=== PATIENT | female | born 1965 | race Caucasian/White ===

== ENCOUNTER 2017-08-13 11:24 | Observation (INO) | payer BC ==
[2017-08-13 13:03] LABS: ABS Basophils 0.1 10^3/ul (0-0.2); ABS Eosinophils 0 10^3/ul (0-0.6); ABS Lymphocytes 0.8 10^3/ul (1.0-4.8); ABS Monocytes 0.8 10^3/ul (0-0.8); ABS Neutrophils 9.8 10^3/ul (1.5-7.7); ABS Nucleated RBC 0 10^3/ul; Eosinophil % 0.2 % (0-6); Hematocrit 38 % (35-47); Hemoglobin 12.7 g/dl (12.0-16.0); Lymphocyte % 7.2 % (25-47); Mean Corpuscular HGB Conc 34 g/dl (31-36); Mean Corpuscular Hemoglobin 31 pg (27-31); Mean Corpuscular Volume 91 fL (80-97); Mean Platelet Volume 8.5 um3 (7.4-10.4); Nucleated Red Blood Cells % 0; Platelet Count 186 10^3/ul (150-450); Red Blood Count 4.16 10^6/ul (4.0-5.4); Red Cell Distribution Width 13 % (10.5-15); White Blood Count 11.5 10^3/ul (3.5-10.8)
[2017-08-13 13:22] LABS: EGFR Non-African American 76.7 (>60)
[2017-08-13] MEDS ORDERED: Ondansetron INJ* 2 MG/ML VIAL IV ONE (13:54)
[2017-08-13] MEDS ORDERED: Morphine INJ* 10 MG/ML 1 ML CARPUJECT IV ONE ×2 (13:54→14:25)
[2017-08-13] MEDS ORDERED: NS 0.9% 1000 ML* 1,000 ML IV ONE ×2 (13:54→18:37)
[2017-08-13] MEDS ORDERED: Morphine VIAL* 4 MG/ML VIAL (1 ml vial) IV ONE (14:29)
--- NOTE | 2017-08-13 15:29 | ED ---
Abdominal Pain/Female - HPI Summary HPI Summary: 52 female presents to ER with complaints of right lower quadrant pain that began suddenly this morning around 2 AM. The dull ache however is very sharp at times with certain positions, coughing, walking in the bumps on the car ride over making it worse. Admits to 2 episodes of vomiting and diarrhea. Denies fever. Has some discomfort with urination. No history of kidney stones. No chest pain or shortness of breath. Pain does not radiate. Did have a hysterectomy however still has both ovaries. Did have ovarian cysts in the past with surgical intervention years ago. No blood in vomit or stool. No past medical history. No medications. No other complaints. - History of Current Complaint Chief Complaint: EDAbdPain Stated Complaint: ABD PAIN Time Seen by Provider: 08/13/17 12:53 Hx Obtained From: Patient ?: No Onset/Duration: Sudden Onset, Lasting Hours, Still Present Timing: Constant Severity Initially: Severe Severity Currently: Moderate Pain Intensity: 8 Pain Scale Used: 0-10 Numeric Location: Discrete At: RLQ, Suprapubic Radiates: No Character: Sharp, Dull Aggravating Factor(s): Movement - Coughing/palpation, certain position Alleviating Factor(s): Position Associated Signs and Symptoms: Positive: Urinary Symptoms, Decreased Appetite, Vomiting, Diarrhea. Negative: Diaphoresis, Fever, Constipation, Blood in Stool , Vaginal Bleeding, Vaginal Discharge Allergies/Adverse Reactions: Allergies Allergy/AdvReac Type Severity Reaction Status Date / Time hydrocodone Allergy Itching Verified 08/13/17 11:32 prednisone Allergy Unknown Verified 08/13/17 11:32 Reaction Details PMH/Surg Hx/FS Hx/Imm Hx Endocrine/Hematology History: Denies: Hx Diabetes Cardiovascular History: Denies: Hx Congestive Heart Failure, Hx Hypertension History: Denies: Hx Renal Disease Musculoskeletal History: Reports: Hx Arthritis, Hx Back Problems - Cancer History Hx Chemotherapy: No Hx Radiation Therapy: No - Surgical History Surgery Procedure, Year, and Place: HYSTERECTOMY, TUBAL LIGATION - Immunization History Date of Tetanus Vaccine: Within 8 years Date of Influenza Vaccine: none Immunizations Up to Date: Yes Infectious Disease History: No Infectious Disease History: Denies: Traveled Outside the [place] in Last 30 Days - Family History Known Family History: Positive: None - Social History Alcohol Use: None Alcohol Amount: 1 glass of wine before bed. Substance Use Type: Reports: None Smoking Status (MU): Former Smoker Type: Cigarettes Review of Systems Constitutional: Negative Cardiovascular: Negative Respiratory: Negative Positive: Abdominal Pain, Vomiting, Diarrhea, Nausea Neurological: Negative All Other Systems Reviewed And Are Negative: Yes Physical Exam Triage Information Reviewed: Yes Vital Signs On Initial Exam: Initial Vitals Temp Pulse Resp BP Pulse Ox 98.9 F 93 16 108/72 96 08/13/17 11:28 08/13/17 11:28 08/13/17 11:28 08/13/17 11:28 08/13/17 11:28 Vital Signs Reviewed: Yes Appearance: Positive: Well-Appearing, Well-Nourished, Pain Distress - Moderate holding right lower quadrant, severe with palpation and changing position Skin: Positive: Warm, Skin Color Reflects Adequate Perfusion, Dry. Negative: Cold, Numb, "Wooden", Cyanosis @, Diaphoretic, Jaundiced, Pale, Erythema @ Head/Face: Positive: Normal Head/Face Inspection Eyes: Positive: EOMI ENT: Positive: Hearing grossly normal, Pharynx normal, TMs normal Neck: Positive: Supple, Nontender Respiratory/Lung Sounds: Positive: Clear to Auscultation, Breath Sounds Present. Negative: Rales, Rhonchi, Wheezes Cardiovascular: Positive: Normal, RRR, Pulses are Symmetrical in both Upper and Lower Extremities. Negative: Murmur, Rub Abdomen Description: Positive: No Organomegaly, Soft, CVA Tenderness (R), CVA Tenderness (L), Guarding, McBurney's Point Tenderness, Other: - Positive rebound and psoas, negative Leigh's, exquisite right lower quadrant and suprapubic tenderness to palpation. Negative: Bruit, Distended, Hernia @, Hepatomegaly, Peritoneal Signs, Pulsatile Mass Bowel Sounds: Positive: Present Pelvic Exam: Positive: External Exam Normal - per patient deferred exam Musculoskeletal: Positive: Normal, Strength/ROM Intact Neurological: Positive: Normal, Sensory/Motor Intact, Alert, Oriented to Person Place, Time, NV Bundle Intact Distally Diagnostics - Vital Signs Vital Signs Temp Pulse Resp BP Pulse Ox 08/13/17 11:28 98.9 F 93 16 108/72 96 - Laboratory Lab Results: Lab Results 08/13/17 08/13/17 08/13/17 Range/Units 12:46 12:46 12:46 WBC 11.5 H (3.5-10.8) 10^3/ul RBC 4.16 (4.0-5.4) 10^6/ul Hgb 12.7 (12.0-16.0) g/dl Hct 38 (35-47) % MCV 91 (80-97) fL MCH 31 (27-31) pg MCHC 34 (31-36) g/dl RDW 13 (10.5-15) % Plt Count 186 (150-450) 10^3/ul MPV 8.5 (7.4-10.4) um3 Neut % (Auto) 84.7 H (38-83) % Lymph % (Auto) 7.2 L (25-47) % [place] % (Auto) 7.3 H (0-7) % Eos % (Auto) 0.2 (0-6) % Baso % (Auto) 0.6 (0-2) % Absolute Neuts (auto) 9.8 H (1.5-7.7) 10^3/ul Absolute Lymphs (auto) 0.8 L (1.0-4.8) 10^3/ul Absolute Monos (auto) 0.8 (0-0.8) 10^3/ul Absolute Eos (auto) 0 (0-0.6) 10^3/ul Absolute Basos (auto) 0.1 (0-0.2) 10^3/ul Absolute Nucleated RBC 0 10^3/ul Nucleated RBC % 0 Sodium 135 L (139-145) mmol/L Potassium 4.1 (3.5-5.0) mmol/L Chloride 103 (101-111) mmol/L Carbon Dioxide 24 (22-32) mmol/L Anion Gap 8 (2-11) mmol/L BUN 19 (6-24) mg/dL Creatinine 0.79 (0.51-0.95) mg/dL Est GFR ( Amer) 98.7 (>60) Est GFR (Non-Af Amer) 76.7 (>60) BUN/Creatinine Ratio 24.1 H (8-20) Glucose 115 H (70-100) mg/dL Lactic Acid 1.1 (0.5-2.0) mmol/L Calcium 9.2 (8.6-10.3) mg/dL Total Bilirubin 0.60 (0.2-1.0) mg/dL AST 13 (13-39) U/L ALT 11 (7-52) U/L Alkaline Phosphatase 29 L (34-104) U/L C-Reactive Protein 25.39 H (< 5.00) mg/L Total Protein 7.1 (6.4-8.9) g/dL Albumin 4.3 (3.2-5.2) g/dL Globulin 2.8 (2-4) g/dL Albumin/Globulin Ratio 1.5 (1-3) Lipase 10 L (11.0-82.0) U/L Beta HCG, Quant < 0.60 mIU/mL Result Diagrams: 08/13/17 12:46 08/13/17 12:46 Lab Statement: Any lab studies that have been ordered have been reviewed, and results considered in the medical decision making process. Re-Evaluation - Re-Evaluation First Eval Re-Evaluation Time: 15:40 Change: Unchanged - Did not have relief from morphine requesting more pain medication. updated on plan. Waiting CT. Second Eval Re-Evaluation Time: 17:15 Change: Improved - had relief after diluadid still having pain. waiting CT results. updated about shift change Abdominal Pain Fem Course/Dx - Course Course Of Treatment: Given fluids, Zofran and pain medication while in ED. Labs and urinalysis obtained. Urinalysis did show blood with 1+ bacteria. Labs showed white blood cell count elevation with left shift as well as elevated CRP concerning for appendicitis versus renal calculi versus cystitis/ pyelonephritis. CT obtained pending results. Normal vitals and physical exam otherwise. Patient was signed out to Danish GARCÍA at shift change pending CT results for further treatment. - Diagnoses Differential Diagnosis: Positive: Appendicitis, Diverticulitis, Ovarian Cyst, Urinary Tract Infection, Other - Pyelonephritis, renal calculi Provider Diagnoses: RLQ abdominal pain Discharge - Sign-Out/Discharge Documenting (check all that apply): Sign-Out Patient Signing out patient TO: Danish Palmer - at shift change pending Ct results - Discharge Plan Condition: Stable Referrals: Nancy Desai MD [Primary Care Provider] - - Billing Disposition and Condition Condition: STABLE
[2017-08-13 15:47] LABS: Urine Appearance Clear; Urine Blood 2+ (Negative); Urine Color Yellow; Urine Ketones Negative (Negative); Urine Protein Negative (Negative); Urine Specific Gravity 1.014 (1.010-1.030); Urine Urobilinogen Negative (Negative)
[2017-08-13] MEDS ORDERED: Iohexol 300* (CONTRAST) 10 ML SDV IV ONE (15:57)
[2017-08-13] MEDS ORDERED: HYDROmorphone INJ* 2 MG/ML CARPUJECT SYRINGE IV SLOW PU ONE ×2 (16:05→18:36)
--- NOTE | 2017-08-13 17:51 | RAD ---
CLINICAL HISTORY: Abdominal pain. Relevant surgical history includes a hysterectomy. COMPARISON: None TECHNIQUE: Contrast enhanced CT examination of the abdomen and pelvis from the lung bases through the initial tuberosities. The patient received 91 mL Omnipaque 300 intravenously prior to imaging.The patient received oral contrast as well prior to imaging. FINDINGS: VISUALIZED LUNG BASES: The visualized lung bases are grossly clear. There is no pleural effusion. ABDOMEN AND PELVIS: There is mild dilatation of the intrahepatic biliary ducts. The common bile duct measures 9 mm in diameter. The liver is otherwise homogenous in attenuation. The spleen, pancreas and adrenal glands are grossly normal in appearance. There are multiple stones in the gallbladder lumen. The right kidney is normal in appearance without focal mass, calcification or signs of hydronephrosis. At the upper pole of the right kidney there is a hypoattenuating structure measuring 2 cm in greatest axial dimension with a calcified rim. This is unchanged since the CTA acquired January 02, 2013 and is of doubtful clinical concern. Neural contrast has progressed as far as the rectosigmoid colon. The small and large bowel are not distended. There is normal contrast in the fluid-filled appendix. The appendix is enlarged up to 12 mm in diameter (axial image 57 and coronal image 64. There is a mild degree of periappendiceal infiltration of the mesenteric fat as well as trace fluid along the posterior margin of the peritoneal cavity. There is no gross retroperitoneal or mesenteric lymphadenopathy. The uterus is surgically absent The coarsely calcified abdominal aorta and iliac arteries are normal in course and diameter. Degenerative changes include multilevel loss of intervertebral disc height involving the lower thoracic and lumbar spine most severely affecting L5/S1 where there is vacuum disc phenomenon.There are no sinister bone lesions. IMPRESSION: 1. CT findings are most consistent with acute appendicitis as described above. 2. Cholelithiasis with a mildly dilated common bile duct measuring 9 mm in diameter. Please correlate to LFTs. If clinically warranted superior characterization of the gallbladder can be made with ultrasound. 3. Additional chronic, degenerative and iatrogenic findings described in the body the report unlikely to be directly related to the patient's current presentation.
[2017-08-13] MEDS ORDERED: Morphine VIAL* 4 MG/ML VIAL (1 ml vial) IV PRN ×2 (18:40→21:35)
[2017-08-13] MEDS ORDERED: Piperacillin/Tazobac ADVAN(*) 3.375 GM in NS 0.9% 100 ML* 100 ML IVPB ONE ×2 (18:41→21:35)
[2017-08-13] MEDS ORDERED: Midazolam* 1 MG/ML 2 ML VIAL (2 MG) ONE (19:22)
[2017-08-13] MEDS ORDERED: fentaNYL* 50 MCG/ML 2 ML VIAL (100 MCG VIAL) ONE ×3 (19:22→21:39)
[2017-08-13] MEDS ORDERED: Bupivacaine 0.25% SDV* 30 ML ONE (19:42)
[2017-08-13] MEDS ORDERED: HYDROcodone/ACETAMIN 5-325 MG* 1 TAB PO PRN ×2 (19:45)
[2017-08-13] MEDS ORDERED: HYDROmorphone INJ* 1 MG/ML CARPUJECT SYRINGE IV PRN (19:45)
[2017-08-13] MEDS ORDERED: PROCHLORPERAZINE INJ 5 MG/ML 2 ML VIAL IV PRN (19:45)
[2017-08-13] MEDS ORDERED: Ondansetron INJ* 2 MG/ML VIAL IV PRN ×2 (19:45→21:35)
[2017-08-13] MEDS ORDERED: Naloxone* 0.4 MG/ML 1 ML VIAL IV PRN (19:45)
[2017-08-13] MEDS ORDERED: Ketorolac INJ* 30 MG/ML 1 ML VIAL ONE (20:47)
[2017-08-13] MEDS ORDERED: Ondansetron INJ* 2 MG/ML VIAL ONE (20:47)
[2017-08-13] MEDS ORDERED: Sugammadex * 200 MG/2 ML VIAL IV PUSH ONE (21:01)
--- NOTE | 2017-08-13 21:30 | BRIEFOPN ---
Brief Operative Note - Surgery Procedures: Procedures OPERATIVE REPORT PRE-OP: acute appendicitis POST-OP: Acute suppurative appendicitis PROCEDURE: Laparoscopic appendectomy SURGEON: MD Chaz ANESTHESIA:Local & General Dr. Gomez ASST: none IVF:1 liter of crystalloid EBL: min SPECIMEN: appendix DRAIN: none WOUND CLASS: 3 COMPLICATIONS: none TO PACU
[2017-08-13] MEDS ORDERED: Ondansetron ODT TAB* 4 MG PO PRN (21:35)
[2017-08-13] MEDS ORDERED: Ketorolac INJ* 30 MG/ML 1 ML VIAL IV PUSH PRN (21:35)
[2017-08-13] MEDS ORDERED: Acetaminophen TAB* 325 MG PO PRN (21:35)
[2017-08-13] MEDS: fentaNYL* 50 MCG/ML 2 ML VIAL (100 MCG VIAL) IV PRN ×2 (21:39→22:02)
[2017-08-13] MEDS ORDERED: Zosyn per Pharmacy* NOTE FOLLOW UP SCH (22:00)
[2017-08-13] MEDS ORDERED: Zolpidem TAB* 10 MG PO PRN (22:07)
[2017-08-13] MEDS ORDERED: clonazePAM TAB(*) 0.5 MG PO PRN (22:07)
[2017-08-14] MEDS: ZOSYN 3.375 GM Q8H per EXTENDED INFUSION IVPB SCH ×4 (00:42→08:06)
--- NOTE | 2017-08-14 02:39 | HP ---
CC: Dr. Nancy Desai at the [facility] * HISTORY AND PHYSICAL: DATE OF ADMISSION: 08/13/17 REASON FOR ADMISSION: Acute appendicitis. HISTORY OF PRESENT ILLNESS: Mr. Dana Gupta is a pleasant 52-year-old woman who woke up in the middle of the night with what she describes as epigastric and periumbilical discomfort followed by profuse nausea and vomiting. The pain migrated, became much more severe in the right lower quadrant over the next several hours to the point were made it hard for her to move and ambulate. She did describe some diarrhea earlier, has had several loose bowel movements here in the emergency. She has not had any fever, shakes or chills. She has had no urinary complaints other than some discomfort when she strains in the right lower quadrant. She has not had a history of kidney stones. While in the emergency room, she was noted to have a temperature of 98.9 and stable vital signs. Laboratory values include a white blood cell count of 11,500 with a slight left shift. She has a C-reactive protein of 25 with a normal BUN and creatinine and lactic acid of 0.5, her lipase was 10. She underwent a CT scan of the abdomen and pelvis due to the location of her discomfort. I did review these images. This shows findings most consistent with acute appendicitis with an appendix that is enlarged up to about 12 mm in diameter with some mild degree of periappendiceal infiltration in the mesenteric fat as well as some fluid along the posterior margin of the area. There were no other acute findings. Cholelithiasis was also identified. Surgical consultation was obtained. PAST MEDICAL HISTORY: 1. Hypothyroidism. 2. Anxiety. 3. Chronic low back pain. MEDICATIONS: Include: 1. Ambien p.r.n. 2. Valtrex 500 mg daily p.r.n. 3. Zoloft 100 mg daily. 4. Oxycodone p.r.n. 5. Levothyroxine 100 mcg daily. 6. Clonazepam 0.5 mg p.r.n. ALLERGIES: HYDROCODONE and PREDNISONE. SOCIAL HISTORY: She is . She works as a home health aide. She does not use tobacco. Drinks alcohol on a social basis. REVIEW OF SYSTEMS: Cerebrovascular: No dizziness or visual disturbances. Cardiovascular: No chest pain or shortness of breath. Pulmonary: No wheezing or hemoptysis. GI: As per above. She has no chronic abdominal discomfort. PHYSICAL EXAMINATION GENERAL: She is a well-developed, slender female actually sitting upright in bed, appears to be uncomfortable. VITAL SIGNS: Temperature is 98.9, pulse 93, blood pressure 108/72, oxygen saturation is 96. HEENT: Oral mucosa is dry. LUNGS: Clear to auscultation with normal respiratory effort. HEART: Regular rate and rhythm without murmurs, rubs, or gallops. ABDOMEN: Soft, nondistended. She has laparoscopic incision near the umbilicus and appears at the suprapubic area. I appreciate no hernias. She had diminished bowel sounds throughout. She has exquisite tenderness in the right lower quadrant with localized peritoneal irritation and guarding/rigidity. There is no generalized peritonitis noted. Extremities: Showed no cyanosis or edema. IMPRESSION: Acute appendicitis by clinical history, physical exam, as well as confirmed by a CT scan as per above. She has a mild elevation of white blood cell count and a C-reactive protein is elevated. I had a long discussion with the patient and her here in the emergency room. At this point, I would recommend a laparoscopic appendectomy and then we will proceed tonight. We discussed alternative to surgery including IV and oral antibiotics, which would require hospital stay probably several days with a longer course of oral antibiotics as an outpatient with the understanding that she has up to 20% chance of recurrent appendicitis in the next year. Here in the [place] this is not the standard or recommendations for care and we recommend laparoscopic appendectomy. After our discussion, they would like to proceed with surgery. The procedure was discussed with the patient and her . The risks include , but not limited to bleeding, infection, intraabdominal abscess formation, injury to peritoneal or retroperitoneal structures, possibility of an open procedure, the risks of anesthesia, deep vein thrombosis, and recovery times and time off from work were all explained. We will proceed this evening. [id number]/[facility] #: [id number] [facility] MEDICAL CENTERSharla
[2017-08-14] MEDS: oxyCODONE/Acetamin 5/325 MG* TAB PO PRN ×2 (04:55→10:25)
[2017-08-14] MEDS ORDERED: Levothyroxine TAB* 100 MCG TAB PO SCH (06:00)
[2017-08-14 07:33] VITALS: BP 100/63
[2017-08-14] MEDS ORDERED: Sertraline* 100 MG TAB PO SCH (09:00)
--- NOTE | 2017-08-14 09:41 | PN ---
Progress Note - Progress Note Date of Service: 08/14/17 Note: Surgery Progress: S: patient seen with and examined by Dr. Ware. Doing well. Very little pain. Awaiting breakfast tray. O: Vital Signs - 8 hr 08/14/17 08/14/17 08/14/17 02:45 03:26 04:29 Temperature 97.8 F 98.2 F Pulse Rate 72 76 Respiratory 16 16 Rate Blood Pressure 99/63 107/70 (mmHg) O2 Sat by Pulse 100 98 100 Oximetry 08/14/17 08/14/17 08/14/17 04:55 07:09 08:18 Temperature 97.2 F Pulse Rate 80 Respiratory 16 16 16 Rate Blood Pressure 100/63 (mmHg) O2 Sat by Pulse 100 Oximetry Intake and Output Last 24 Hours 08/12/17 08/13/17 08/14/17 08/15/17 06:59 06:59 06:59 06:59 Intake Total 295 Output Total 800 Balance -505 Weight 150 lb Intake: IV Fluids 100 3.375GM ZOSYN 100 IVPB 95 ABX - ZOSYN 95 Oral 100 Output: Urine 800 Other: Date of Last Bowel 08/14/17 Movement # Bowel Movements 1 Estimated Stool Amount Small Abd: small amt of dried blood on umb incision-> mild to mod tender; abd otherwise soft, min tender A: s/p lap appy for acute (nonruptured appendicitis); doing well P: home later today after breakfast; instructions reviewed
--- NOTE | 2017-08-14 13:47 | OP ---
DATE OF OPERATION: 08/13/17 - ROOM #342 DATE OF : 67 SURGEON: Ronald Ware MD. STICKER OPERATOR: None. ANESTHESIOLOGIST: Dr. Gomez. ANESTHESIA: General with local. PRE-OP DIAGNOSIS: Acute appendicitis. POST-OP DIAGNOSIS: Acute suppurative appendicitis. OPERATIVE PROCEDURE: Laparoscopic appendectomy. ESTIMATED BLOOD LOSS: Minimal. WOUND CLASSIFICATION: III. COMPLICATIONS: None. SPECIMENS: Appendix. DRAINS: None. DESCRIPTION OF PROCEDURE: Written informed consent was obtained, the abdomen was marked with indelible ink and preoperative antibiotics were administered. The patient was taken to the operating room and placed in the supine position. Sequential compression devices and warming blanket were applied. The abdomen was prepped and draped in the usual sterile fashion. Time-out verification was completed. Initially, a small transverse incision was made just above the umbilicus. The midline of the peritoneal cavity was entered under direct vision. A 12-mm blunt port was inserted and the abdomen was insufflated to 15 mmHg. Under direct vision, a 5-mm port was placed in the left lower abdominal wall and the second 5-mm port was placed in the suprapubic position. The patient was placed in Trendelenburg position. There was some turbid purulent fluid in the right lower quadrant and into the pelvis and this was irrigated and suctioned until clear. The omentum was retracted superiorly and the terminal ileum was identified. This appeared to be unremarkable. The cecum was also normal appearing and the base of the appendix was intraperitoneal and its proximal half was normal; however, the appendix traversed the pelvic brim along the lateral sidewall down into the pelvis and here was quite thickened, indurated, inflamed, and it was adherent to the right ovary and some fat off the sigmoid colon. It was obvious that the distal appendix was inflamed consistent with acute suppurative appendicitis. I was able to grasp the appendix and deliver it up into view of blunt dissection, from the ovary and colon. There was no evidence of perforation or gangrene. I irrigated the pelvis until clear in this area. The mesoappendix was then divided sequentially with the LigaSure down to the edematous mesoappendix to the base of the appendix. This was normal as well as the cecum. A beckett load of a 45-mm stapler was used to fire across the base of the appendix to amputate it. It was placed in Endo Catch bag and brought out through the umbilical incision. Staple line was evaluated; it was intact without bleeding. Hemostasis was assured. I irrigated the pelvis and right lower quadrant once again with saline. All ports removed under direct vision of the camera. There was no abdominal wall bleeding. The umbilical fascia was closed with interrupted 0 Polysorb suture. The skin was approximated with subcuticular 4-0 Vicryl suture. Steri- Strips were applied. The patient tolerated the procedure well and was taken to the recovery room in stable condition. [id number]/[facility] #: [id number] KRISTY
--- NOTE | 2017-08-15 05:28 | DS ---
CC: Dr. Nancy Desai * DISCHARGE SUMMARY: DATE OF ADMISSION: 08/13/17 DATE OF DISCHARGE: 08/14/17 ATTENDING SURGEON: Ronald Ware MD * (DICTATED BY RICKY CORTEZ) HOSPITAL COURSE: Please refer to admission history and physical and operative note for details. The patient presented with a clinical picture and CT confirmation consistent with acute appendicitis. She was taken to the operating room the evening of 08/13/[address] Ware and underwent laparoscopic appendectomy for clinically positive acute appendicitis without rupture. She was treated perioperatively with IV Zosyn, but not felt to need further antibiotics upon discharge. As of the morning of discharge, she was feeling well with minimal discomfort and waiting for breakfast tray. Vital Signs; temperature 97.2, blood pressure 100/63, pulse 80, respirations 16 , room air saturation 100%. General: She appears comfortable and in no acute distress. Abdomen: Laparoscopic incision sites with intact Steri-Strips and a small amount of dried blood on the umbical incision, mildly tender at the incisions (patient seen and examined by Dr. Ware). IMPRESSION: Status post laparoscopic appendectomy for acute nonruptured appendicis, doing well. PLAN: Home today. Instructions were reviewed regarding wound care, diet and activity. Followup is scheduled for 08/21/17 in our office. RICKY CORTEZ [id number]/[facility] #: [id number] MTDD
== END 2017-08-14 11:25 | disposition home or self-care (01) ==
LOC: ED 11:24 → OR 21:37 → SSU 22:54
PROVIDERS: ADMIT Surgery; ATTEND Surgery
PROC: 0DTJ4ZZ Resection of Appendix, Percutaneous Endoscopic Approach (ICD-10-PCS; principal; 2017-08-13 20:30)
DX: K35.80 Unspecified acute appendicitis (principal); R10.31 Right lower quadrant pain; R11.2 Nausea with vomiting, unspecified; R19.7 Diarrhea, unspecified; Z87.891 Personal history of nicotine dependence; E03.9 Hypothyroidism, unspecified; F41.9 Anxiety disorder, unspecified; G89.29 Other chronic pain; M54.5 Low back pain
CPT/HCPCS: 36415; 74177; 80053; 81003; 81015; 83605; 83690; 84702; 85025; 86140; 87040; 87086; 88304; 96374; 96375; 99283; A9270-GY; C1776; G0378; J1170; J1885; J2250; J2270; J2405; J2543; J3010; Q9967

== ENCOUNTER 2020-04-21 05:44 | Inpatient (IN) ==
[2020-04-21] MEDS ORDERED: Famotidine IV 10 MG/ML 2 ml VIAL (20 mg) IV ONE (06:00)
[2020-04-21] MEDS ORDERED: Lactated Ringers 1000 ml BAG 1,000 ML IV SCH ×2 (06:00→15:00)
[2020-04-21] MEDS ORDERED: Buffered Lidocaine 1% SYRIN 1 ml INTRADERM ONE ×2 (06:00→06:14)
[2020-04-21] MEDS ORDERED: Famotidine IV 10 MG/ML 2 ml VIAL (20 mg) ONE (06:14)
[2020-04-21] MEDS ORDERED: Propofol 10 mg/ml 100 ML BTL 100 ML ONE ×2 (06:49→12:28)
[2020-04-21] MEDS ORDERED: fentaNYL 250 mcg/5 ml 50 MCG/ML 5 ml VIAL (250 MCG) ONE (06:53)
[2020-04-21] MEDS ORDERED: Midazolam 5 mg/5 ml VIAL 1 mg/ml 5 ml VIAL (5 mg) ONE (06:53)
[2020-04-21] MEDS ORDERED: Rocuronium 50 mg VIAL 10 mg/ml 5 ml VIAL (50 mg) ONE (06:53)
[2020-04-21] MEDS ORDERED: Ketamine HCL 50 mg/ml 10 ml VIAL (500 MG) ONE (06:54)
[2020-04-21] MEDS ORDERED: Lidocaine 2% PF 5 ML VIAL ONE (06:54)
[2020-04-21] MEDS ORDERED: Propofol 10 MG/ML 20 ML BTL ONE (06:54)
[2020-04-21] MEDS ORDERED: Remifentanil 2 MG VIAL ONE ×2 (06:54→10:30)
[2020-04-21] MEDS ORDERED: Succinylcholine 200 mg VIAL 20 mg/ml 10 ml VIAL (200 mg) ONE (06:55)
[2020-04-21] MEDS ORDERED: ceFAZolin 2 GM PREMIX 2 GM/50 ML BAG ONE ×2 (07:06→11:44)
[2020-04-21] MEDS ORDERED: Bupivacaine 0.25% SDV 30 ML ONE (07:12)
[2020-04-21] MEDS ORDERED: Bacitracin INJECTION 50,000 UNITS ONE ×2 (07:12→12:58)
[2020-04-21] MEDS ORDERED: Artificial Tear OPHTH.OINT 3.5 GM ONE (07:49)
[2020-04-21] MEDS ORDERED: Bupivacaine 0.5% SDV PF 30ML VIAL ONE ×2 (08:35→08:52)
[2020-04-21] MEDS ORDERED: diPHENhydraMINE IV 50 MG/ML 1 ml VIAL (BENADRYL) ONE (08:35)
[2020-04-21] MEDS ORDERED: Dexamethasone IV 4 MG/ML VIAL 1 ml VIAL ONE (08:37)
[2020-04-21] MEDS ORDERED: EPHEDrine (Pressors) 50 MG/ML VIAL ONE (08:50)
[2020-04-21] MEDS ORDERED: Phenylephrine IV 10 MG/ML 1 ml VIAL ONE (09:11)
[2020-04-21] MEDS ORDERED: Ondansetron 4 mg VIAL 2 MG/ML 2 ml VIAL ONE (09:54)
[2020-04-21] MEDS ORDERED: HYDROmorphone 1 MG/1 ML SYRINGE ONE ×6 (09:54→14:09)
[2020-04-21] MEDS ORDERED: ceFAZolin VIAL VIAL ONE (11:41)
[2020-04-21] MEDS ORDERED: hydrALAZINE 20 mg/ml 1 ML Vial IV ONE (13:55)
[2020-04-21] MEDS ORDERED: Naloxone 0.4 mg VIAL 0.4 mg/ml 1 ml VIAL IV PRN (13:56)
[2020-04-21] MEDS ORDERED: Ondansetron 4 mg VIAL 2 MG/ML 2 ml VIAL IV PRN (13:56)
[2020-04-21] MEDS: HYDROmorphone 1 MG/1 ML SYRINGE IV PRN ×2 (14:09→14:24)
[2020-04-21] MEDS ORDERED: HYDROmorphone 0.5 MG/0.5 ML SYRINGE IV SLOW PU PRN (14:12)
[2020-04-21] MEDS ORDERED: fentaNYL 100 mcg/2 ml 50 MCG/ML VIAL ONE (14:32)
[2020-04-21] MEDS: fentaNYL 100 mcg/2 ml 50 MCG/ML VIAL IV PRN ×2 (14:33→14:37)
[2020-04-21] MEDS ORDERED: oxyCODONE/Acetamin 5/325 mg TAB ONE ×2 (18:00→18:45)
[2020-04-21] MEDS: oxyCODONE/Acetamin 5/325 mg TAB PO PRN ×3 (18:02→22:51)
[2020-04-21] MEDS ORDERED: NS 0.9% 500 ML BAG IV ONE (19:00)
[2020-04-21] MEDS: Magnesium Hydroxide LIQ 30 ML UDC PO SCH (20:11)
[2020-04-22] MEDS: oxyCODONE/Acetamin 5/325 mg TAB PO PRN (02:51)
[2020-04-22] MEDS ORDERED: HYDROmorphone 1 MG/1 ML SYRINGE IV SLOW PU PRN (08:06)
[2020-04-22] MEDS ORDERED: HYDROmorphone 0.5 MG/0.5 ML SYRINGE ONE (08:12)
[2020-04-22] MEDS ORDERED: oxyCODONE/Acetamin 5/325 mg TAB PO PRN (08:19)
[2020-04-22] MEDS: Ondansetron 4 mg VIAL 2 MG/ML 2 ml VIAL IV PRN ×2 (09:49→18:42)
[2020-04-22] MEDS: Magnesium Hydroxide LIQ 30 ML UDC PO SCH ×2 (09:55→20:08)
[2020-04-22] MEDS ORDERED: fentaNYL PATCH 37.5 MCG/HR(NF) PATCH.TD72 TRANSDERM SCH (14:00)
[2020-04-22] MEDS: fentaNYL PATCH 25 MCG/HR 1 PATCH TRANSDERM SCH (14:03)
[2020-04-22] MEDS: fentaNYL PATCH 12 MCG/HR 1 PATCH TRANSDERM SCH (14:05)
[2020-04-22] MEDS: HYDROmorphone 1 MG/1 ML SYRINGE IV SLOW PU PRN ×3 (15:17→23:12)
[2020-04-22] MEDS: fentaNYL Patch Check Q Shift NOTE FOLLOW UP SCH (19:10)
[2020-04-23] MEDS: HYDROmorphone 1 MG/1 ML SYRINGE IV SLOW PU PRN ×2 (03:48→17:28)
[2020-04-23] MEDS: fentaNYL Patch Check Q Shift NOTE FOLLOW UP SCH ×3 (07:53→19:36)
[2020-04-23] MEDS: Magnesium Hydroxide LIQ 30 ML UDC PO SCH ×2 (08:23→20:49)
[2020-04-23] MEDS ORDERED: NS 0.9% 500 ml BAG 500 ML IV ONE (11:13)
[2020-04-23 11:54] LABS: ABS Lymphocytes 1.2 10^3/ul (1.0-4.8); ABS Monocytes 0.7 10^3/ul (0-0.8); ABS Neutrophils 5.5 10^3/ul (1.5-7.7); Eosinophil % 0.1 %; Hematocrit 30 % (35-47); Hemoglobin 10.1 g/dL (12.0-16.0); Lymphocyte % 16.2 %; Mean Corpuscular HGB Conc 33 g/dL (31-36); Mean Corpuscular Hemoglobin 31 pg (27-31); Mean Corpuscular Volume 92 fL (80-97); Mean Platelet Volume 8.6 fL (7.4-10.4); Platelet Count 130 10^3/uL (150-450); Red Cell Distribution Width 12 % (10-15); White Blood Count 7.5 10^3/uL (3.5-10.8)
[2020-04-23 12:12] LABS: Calcium 8.6 mg/dL (8.6-10.3); EGFR African American 86.7 (>60); EGFR Non-African American 71.6 (>60); Magnesium 1.4 mg/dL (1.9-2.7); Potassium 3.5 mmol/L (3.5-5.0)
[2020-04-23] MEDS ORDERED: Magnesium Sulfate IV 3 GM in NS 0.9% 100 ml BAG 100 ML IVPB ONE (12:14)
[2020-04-23] MEDS ORDERED: LACTATED RINGERS IV ONE (12:15)
[2020-04-23 13:06] LABS: Urine Appearance Clear; Urine Bilirubin Negative (Negative); Urine Blood 2+ (Negative); Urine Color Yellow; Urine Glucose Negative (Negative); Urine Ketones Negative (Negative); Urine Nitrite Negative (Negative); Urine Protein Negative (Negative); Urine Urobilinogen Negative (Negative)
[2020-04-23 13:12] LABS: Urine Bacteria Absent (Absent); Urine Red Blood Cell 1+(3-5/hpf) (Absent); Urine Squamous Epithelial Cell Present (Absent); Urine White Blood Cell Trace(0-5/hpf) (Absent)
[2020-04-23 13:30] LABS: Albumin 3.7 g/dL (3.2-5.2); Albumin/Globulin Ratio 1.4 (1-3); Globulin 2.7 g/dL (2-4); Indirect Bilirubin 0.5 mg/dL (0.3-1.0); Total Bilirubin 0.7 mg/dL (0.2-1.0); Total Protein 6.4 g/dL (6.4-8.9)
[2020-04-23] MEDS ORDERED: Vancomycin per Pharmacy 1 EA NOTE FOLLOW UP SCH (14:00)
[2020-04-23] MEDS ORDERED: Vancomycin Trough Check NOTE FOLLOW UP ONE (14:00)
[2020-04-23] MEDS: Cefepime 2 GM in Dextrose 2 GM/50 ML BAG IV SCH (14:10)
[2020-04-23] MEDS ORDERED: Vancomycin 1,000 MG in NS 0.9% 250 ml 250 ML IVPB ONE (14:30)
[2020-04-23] MEDS: Vancomycin 1000 MG in NS 0.9% 250 ML IVPB SCH ×2 (21:41→22:47)
[2020-04-23] MEDS: Ondansetron 4 mg VIAL 2 MG/ML 2 ml VIAL IV PRN (22:53)
[2020-04-24] MEDS: HYDROmorphone 1 MG/1 ML SYRINGE IV SLOW PU PRN (00:47)
[2020-04-24] MEDS: Cefepime 2 GM in Dextrose 2 GM/50 ML BAG IV SCH ×2 (02:06→15:40)
[2020-04-24] MEDS: Vancomycin 1000 MG in NS 0.9% 250 ML IVPB SCH ×2 (06:11→17:59)
[2020-04-24 07:02] LABS: ABS Lymphocytes 0.8 10^3/ul (1.0-4.8); ABS Monocytes 0.5 10^3/ul (0-0.8); ABS Neutrophils 4.1 10^3/ul (1.5-7.7); Eosinophil % 0.4 %; Hematocrit 26 % (35-47); Hemoglobin 8.8 g/dL (12.0-16.0); Lymphocyte % 14.9 %; Mean Corpuscular HGB Conc 34 g/dL (31-36); Mean Corpuscular Hemoglobin 31 pg (27-31); Mean Corpuscular Volume 91 fL (80-97); Mean Platelet Volume 8.7 fL (7.4-10.4); Platelet Count 107 10^3/uL (150-450); Red Blood Count 2.81 10^6 /uL (3.70-4.87); Red Cell Distribution Width 12 % (10-15); White Blood Count 5.5 10^3/uL (3.5-10.8)
[2020-04-24] MEDS: fentaNYL Patch Check Q Shift NOTE FOLLOW UP SCH ×2 (07:15→18:54)
[2020-04-24 07:18] LABS: EGFR African American 107.3 (>60); EGFR Non-African American 88.7 (>60)
[2020-04-24] MEDS: Magnesium Hydroxide LIQ 30 ML UDC PO SCH ×2 (07:25→22:21)
[2020-04-24 08:15] LABS: Magnesium 1.8 mg/dL (1.9-2.7)
[2020-04-24 12:06] LABS: Hematocrit 26 % (35-47); Hemoglobin 8.5 g/dL (12.0-16.0)
[2020-04-24] MEDS ORDERED: NS 0.9% 1000 ml BAG 1,000 ML IV ONE (13:15)
[2020-04-24] MEDS: Analgesic BALM 114 GM TOPICAL SCH ×3 (13:45→22:21)
[2020-04-24 14:26] LABS: C Reactive Protein 159.83 mg/L (<8.01)
[2020-04-24 18:21] LABS: Hematocrit 23 % (35-47); Hemoglobin 7.9 g/dL (12.0-16.0)
[2020-04-24] MEDS: NS 0.9% 1000 ml BAG 1,000 ML IV SCH (19:24)
[2020-04-25 01:32] LABS: Hematocrit 23 % (35-47); Hemoglobin 7.8 g/dL (12.0-16.0)
[2020-04-25] MEDS: NS 0.9% 1000 ml BAG 1,000 ML IV SCH (04:11)
[2020-04-25] MEDS: Ondansetron 4 mg VIAL 2 MG/ML 2 ml VIAL IV PRN (05:36)
[2020-04-25] MEDS: HYDROmorphone 1 MG/1 ML SYRINGE IV SLOW PU PRN (05:36)
[2020-04-25] MEDS: fentaNYL Patch Check Q Shift NOTE FOLLOW UP SCH (07:30)
[2020-04-25 10:11] LABS: ABS Eosinophils 0.1 10^3/ul (0-0.6); ABS Lymphocytes 0.4 10^3/ul (1.0-4.8); ABS Monocytes 0.3 10^3/ul (0-0.8); Eosinophil % 1.8 %; Hematocrit 27 % (35-47); Lymphocyte % 11.5 %; Mean Corpuscular HGB Conc 33 g/dL (31-36); Mean Corpuscular Hemoglobin 31 pg (27-31); Mean Corpuscular Volume 92 fL (80-97); Mean Platelet Volume 8.9 fL (7.4-10.4); Platelet Count 136 10^3/uL (150-450); Red Blood Count 2.92 10^6 /uL (3.70-4.87); Red Cell Distribution Width 12 % (10-15); White Blood Count 3.9 10^3/uL (3.5-10.8)
[2020-04-25] MEDS: Magnesium Hydroxide LIQ 30 ML UDC PO SCH (10:45)
[2020-04-25 10:55] LABS: Albumin 3.5 g/dL (3.2-5.2); Albumin/Globulin Ratio 1.2 (1-3); BUN/Creatinine Ratio 12.3 (8-20); Calcium 8.6 mg/dL (8.6-10.3); EGFR African American 114.9 (>60); Globulin 2.9 g/dL (2-4); Magnesium 1.7 mg/dL (1.9-2.7); Potassium 3.8 mmol/L (3.5-5.0); Total Bilirubin 0.6 mg/dL (0.2-1.0); Total Protein 6.4 g/dL (6.4-8.9)
[2020-04-25] MEDS: Analgesic BALM 114 GM TOPICAL SCH ×2 (11:07→15:00)
[2020-04-25 11:27] VITALS: BP 96/55
[2020-04-25] MEDS: fentaNYL PATCH 25 MCG/HR 1 PATCH TRANSDERM SCH (14:31)
[2020-04-25] MEDS: fentaNYL PATCH 12 MCG/HR 1 PATCH TRANSDERM SCH (14:34)
== END 2020-04-25 13:25 | disposition home or self-care (01) | DRG 304 ==
LOC: AA 05:44 → SSU 15:43 → MED 04-23 19:16 → SSU 04-25 09:07
PROVIDERS: ADMIT Neurological Surgery; ATTEND Neurological Surgery